=== PATIENT | female | born 1960 | race African-American/Black ===

== ENCOUNTER 2021-05-14 22:33 | Emergency (ER) | payer OTHER ==
[~2021-05-14] VITALS: Ht 165.1 cm; Wt 90.7 kg
[2021-05-14] MEDS ORDERED: TRAMADOL HCL 50 MG TAB PO ONE (23:15)
[2021-05-14] MEDS ORDERED: TRAMADOL HCL 50 MG TAB ONE (23:19)
[2021-05-15] MEDS ORDERED: CYCLOBENZAPRINE5 MG PO (00:58)
[2021-05-15] MEDS ORDERED: ULTRAM50 MG PO (00:58)
== END 2021-05-15 01:20 | disposition home or self-care (01) ==
LOC: ER 23:08
DX: M79.605 Pain in left leg (principal); M54.32 Sciatica, left side; E78.5 Hyperlipidemia, unspecified; E03.9 Hypothyroidism, unspecified; Z86.718 Personal history of other venous thrombosis and embolism
CPT/HCPCS: 93971; 99283

== ENCOUNTER → 2021-06-20 | Day surgery (SDC) | payer OTHER ==
[~2021-06-20] MED LIST: ASPIRIN81 MG PO; CRESTOR10 MG PO; CYCLOBENZAPRINE5 MG PO; HYOSCYAMINE SULFATE 0.5 MG/ML INJ ONE; MIDAZOLAM HCL 2 MG/2 ML VIAL ONE; MULTI-VITAMIN1 EACH PO; SYNTHROID100 MCG PO; ULTRAM50 MG PO
[2021-06-20 11:25] VITALS: BP 111/78
== END | disposition home or self-care (01) ==
LOC: OR 08:47
PROVIDERS: ATTEND Internal Medicine Gastroenterology
DX: Z12.11 Encounter for screening for malignant neoplasm of colon (principal); D12.0 Benign neoplasm of cecum; D12.2 Benign neoplasm of ascending colon; D12.4 Benign neoplasm of descending colon; K57.30 Diverticulosis of large intestine without perforation or abscess without bleeding; K64.8 Other hemorrhoids; E03.9 Hypothyroidism, unspecified; R03.0 Elevated blood-pressure reading, without diagnosis of hypertension; E78.5 Hyperlipidemia, unspecified; Z01.810 Encounter for preprocedural cardiovascular examination; Z01.812 Encounter for preprocedural laboratory examination; Z20.822 Contact with and (suspected) exposure to COVID-19; Z79.82 Long term (current) use of aspirin; Z68.33 Body mass index [BMI] 33.0-33.9, adult; Z86.718 Personal history of other venous thrombosis and embolism
CPT/HCPCS: 45380; 45385; 93005; J1980; J2250; U0002; 45378

== ENCOUNTER → 2024-10-11 | Day surgery (SDC) | payer BC, OTHER ==
[~2024-10-11] MED LIST changes: +FENTANYL CITRATE/PF 100MCG/2 ML INJ ONE; +GLUCAGON FOR INJ 1 MG VIAL ONE; +KETAMINE 50MG/5ML SYR ONE; +LIDOCAINE HCL 2% LOCAL INJ 5 ML SDV VIAL INJ ONE; -MIDAZOLAM HCL 2 MG/2 ML VIAL ONE; +ONDANSETRON HCL INJ 2MG/ML 2ML 2 MG/ML VIAL ONE; +PROPOFOL IV EMULSION 10 MG/ML 20 ML VIAL ONE
[2024-10-11] MEDS: LACTATED RINGER'S 1,000 ML ONE (07:35)
[2024-10-11 08:17] VITALS: TEMP 97.8
[2024-10-11 08:45] VITALS: BP 136/89; PULSE 60; RESP 18; O2SAT 99
== END | disposition home or self-care (01) ==
LOC: OR 06:00
PROVIDERS: ATTEND Internal Medicine Gastroenterology
DX: Z09 Encounter for follow-up examination after completed treatment for conditions other than malignant neoplasm (principal); Z86.0100 Personal history of colon polyps, unspecified; K57.30 Diverticulosis of large intestine without perforation or abscess without bleeding; K64.8 Other hemorrhoids; Z71.3 Dietary counseling and surveillance; E03.9 Hypothyroidism, unspecified; E78.00 Pure hypercholesterolemia, unspecified; Z71.89 Other specified counseling; Z01.810 Encounter for preprocedural cardiovascular examination; Z79.82 Long term (current) use of aspirin; Z79.899 Other long term (current) drug therapy; Z68.38 Body mass index [BMI] 38.0-38.9, adult; Z86.718 Personal history of other venous thrombosis and embolism
CPT/HCPCS: 45378; 93005; J1610; J1980; J2003; J2405; J2704; J3010; J7121